=== PATIENT | male | born 1985 | race Caucasian/White ===

== ENCOUNTER → 2016-07-07 | Outpatient (CLI) | payer OTHER ==
--- NOTE | 2016-07-07 14:58 | DIAGNOSTIC IMAGING REPORT ---
RIGHT AXILLARY ULTRASOUND CLINICAL HISTORY: Axillary lymphadenopathy. COMPARISON STUDY: 05/19/2016 FINDINGS: Multiple prominent axillary lymph nodes are again visualized. These continue to demonstrate abnormally thickened cortices. The lymph nodes are minimally smaller than the prior study. IMPRESSION: Persistent right axillary lymphadenopathy. The lymph nodes continue to demonstrate abnormally thickened cortices. The lymph nodes are minimally smaller than on the prior May 19, 2016 study Electronically signed by: Devante Ayala M.D. 07/07/2016 2:56 PM Dictated Date/Time: 07/07/2016 2:52 PM
== END | disposition home or self-care (01) ==
LOC: C.ULTR 14:11
PROVIDERS: ATTEND Surgery
DX: R59.9 Enlarged lymph nodes, unspecified (principal)